=== PATIENT | female | born 1985 | race Caucasian/White ===

== ENCOUNTER 2024-02-09 06:48 | Day surgery (SDC) | payer MEDICAID ==
[2024-02-09] MEDS: Lactated Ringers 1,000 ML IV SCH (07:14)
[2024-02-09] MEDS: Acetaminophen 500 MG Tab PO ONE (07:25)
[2024-02-09] MEDS ORDERED: Midazolam 1 MG/ML 2 ML SDV ONE (07:36)
[2024-02-09] MEDS ORDERED: fentaNYL 100 MCG/2 ML SDV ONE (07:36)
[2024-02-09] MEDS ORDERED: Propofol 200 MG/20 ML SDV ONE ×2 (07:36→09:08)
[2024-02-09] MEDS: ceFAZolin 2 GM in Premix Bag 1 BAG IV ONE (08:35)
[2024-02-09] MEDS: Lidocaine 1% with EPINEPHrine 1:100,000 50 ML MDV ONE (10:41)
[2024-02-09] MEDS: Bupivacaine 0.5% 50 ML MDV ONE (10:41)
[2024-02-09] MEDS: Bacitracin Oint 1 GM U/D Packet ONE (10:41)
== END 2024-02-09 11:19 | disposition home or self-care (01) ==
LOC: JP.SDS 06:48
PROVIDERS: ATTEND Student in an Organized Health Care Education/Training Program
DX: L72.12 Trichodermal cyst (principal); Z88.8 Allergy status to other drugs, medicaments and biological substances
CPT/HCPCS: 88304; A9270-GY; J0665; J0690; J2250; J2704; J3010; J7120